=== PATIENT | female | born 1980 | race African-American/Black ===

== ENCOUNTER 2018-11-13 11:36 | Emergency (ER) | payer MEDICAID ==
[~2018-11-13] VITALS: Ht 154.9 cm; Wt 74.8 kg
[2018-11-13 12:37] LABS: Urine Bacteria MANY /hpf (None Seen); Urine Blood Negative /uL (Negative); Urine WBC 2 /hpf (0 - 5)
[2018-11-13 13:36] LABS: Basophils # (auto) 0 uL; Eosinophils # (auto) 0.1 uL; Lymphocytes # (auto) 0.4 uL; Lymphocytes % (auto) 4.4 % (10.0-50.0)
[2018-11-13 13:37] LABS: Basophils % (auto) 0.2 % (0.0-2.0); Eosinophils % (auto) 0.8 % (0.0-7.0); Hemoglobin 13.6 g/dL (12.2-16.2); Mean Corpuscular Hemoglobin 26.7 pg (28.0-32.0); Mean Corpuscular Hgb Conc. 32.4 g/dL (32.0-36.0); Mean Corpuscular Volume 82.4 fL (80.0-100.0); Monocytes # (auto) 0.5 uL; Monocytes % (auto) 5.3 % (0.0-12.0); Neutrophils # (auto) 7.9 uL; Neutrophils % (auto) 89.3 % (37.0-80.0); Platelet Count (auto) 208 10^3/uL (140-450); Red Blood Cells 5.09 10^6/uL (4.0-5.20); Red Cell Distribution Width 14.3 % (11.8-14.3); White Blood Cell 8.8 10^3/uL (4.4-10.8)
[2018-11-13 13:58] LABS: Albumin 3.8 g/dL (3.4-5.0); BUN/Creatinine Ratio 10.1; Calcium 9.5 mg/dL (8.5-10.1); Potassium 3.7 mmol/L (3.5-5.1)
[2018-11-13 14:01] LABS: Bilirubin, Total 0.5 mg/dL (0.2-1.0); Total Protein 8.6 g/dL (6.4-8.2)
[2018-11-13] MEDS ORDERED: cefTRIAXone W LIDOCAINE 1 GM IM IM ONE (17:30)
[2018-11-13] MEDS ORDERED: LIDOCAINE 2% (LOCAL ANESTH.) PF 5ml SDV ONE (17:41)
[2018-11-13] MEDS ORDERED: cefTRIAXone SOD 1,000 MG VL ONE (17:41)
[2018-11-13 17:45] VITALS: BP 117/72
== END 2018-11-13 17:51 | disposition home or self-care (01) ==
LOC: ER 11:36 → MERGE 11:36 → ER 17:51
DX: K52.9 Noninfective gastroenteritis and colitis, unspecified (principal); N39.0 Urinary tract infection, site not specified; Z88.0 Allergy status to penicillin
CPT/HCPCS: 36415; 74176; 80053; 81001; 84702; 85025; 96372; 99284; J0696; J2001

== ENCOUNTER 2018-12-03 08:02 | Emergency (ER) | payer MEDICAID ==
[~2018-12-03] VITALS: Ht 154.9 cm; Wt 68.0 kg
[2018-12-03 08:17] VITALS: BP 112/65
[2018-12-03] MEDS ORDERED: LOPERAMIDE HCL 2 MG CAP PO ONE (08:30)
== END 2018-12-03 08:55 | disposition home or self-care (01) ==
LOC: ER 08:02
DX: N39.0 Urinary tract infection, site not specified (principal); R19.7 Diarrhea, unspecified; Z90.49 Acquired absence of other specified parts of digestive tract; Z88.0 Allergy status to penicillin
CPT/HCPCS: 81002; 81025

== ENCOUNTER 2019-01-27 11:48 | Emergency (ER) | payer MEDICAID ==
[~2019-01-27] VITALS: Ht 154.9 cm; Wt 68.0 kg
[2019-01-27 14:32] VITALS: BP 118/76
[2019-01-27] MEDS ORDERED: ACETAMINOPHEN 325 MG TAB PO ONE (14:45)
== END 2019-01-27 14:42 | disposition home or self-care (01) ==
LOC: ER 11:48
DX: S16.1XXA Strain of muscle, fascia and tendon at neck level, initial encounter (principal); M54.9 Dorsalgia, unspecified; Z98.51 Tubal ligation status; Z88.0 Allergy status to penicillin; V43.52XA Car driver injured in collision with other type car in traffic accident, initial encounter; Y93.I9 Activity, other involving external motion; Y92.488 Other paved roadways as the place of occurrence of the external cause; Y99.8 Other external cause status
CPT/HCPCS: 72040

== ENCOUNTER 2024-04-20 11:14 | Emergency (ER) | payer MEDICAID ==
[~2024-04-20] VITALS: Ht 154.9 cm; Wt 85.8 kg
[2024-04-20 12:44] VITALS: BP 142/67; PULSE 69; RESP 18; TEMP 98.7; O2SAT 100
[2024-04-20] MEDS ORDERED: MELO15TA29 PO (13:25)
[2024-04-20] MEDS: methylPREDNISolone SOD SUCC 125 MG/2 ML VL IM ONE (13:43)
[2024-04-20] MEDS: HYDROcodone-ACET 7.5/325MG TAB PO ONE (13:44)
== END 2024-04-20 13:49 | disposition home or self-care (01) ==
LOC: ER 11:14
DX: M54.30 Sciatica, unspecified side (principal); Z98.890 Other specified postprocedural states; Z88.0 Allergy status to penicillin; Z79.899 Other long term (current) drug therapy
CPT/HCPCS: 96372; 99283; J2919